=== PATIENT | female | born 2000 | race Caucasian/White ===

== ENCOUNTER 2023-12-25 07:45 | Emergency (ER) | payer OTHER ==
[~2023-12-25] VITALS: Ht 170.2 cm; Wt 68.0 kg
[2023-12-25] MEDS ORDERED: Ibuprofen 400 MG Tab PO ONE (08:30)
== END 2023-12-25 09:18 | disposition home or self-care (01) ==
LOC: ER 07:45
DX: M54.2 Cervicalgia (principal); M54.6 Pain in thoracic spine; V89.2XXA Person injured in unspecified motor-vehicle accident, traffic, initial encounter
CPT/HCPCS: 72040; 72070; 99284-25; A9270